=== PATIENT | female | born 1985 | race Caucasian/White ===

== ENCOUNTER 2024-01-18 06:41 | Outpatient (RCR) | payer OTHER, SELFPAY | END 2024-01-18 23:59 | disposition home or self-care (01) | LOC: ROT 06:41 | PROVIDERS: ATTENDING PHYSICIAN Physician Assistant Medical; FAMILY PHYSICIAN Physician Assistant | DX: S62.646D Nondisplaced fracture of proximal phalanx of right little finger, subsequent encounter for fracture with routine healing (principal); Z73.6 Limitation of activities due to disability | CPT/HCPCS: 97022; 97166; 97535 ==

== ENCOUNTER → 2024-09-28 07:34 | Outpatient (REF) | payer OTHER, SELFPAY | LOC: HWWDC 07:34 | PROVIDERS: ATTENDING PHYSICIAN Nurse Practitioner Adult Health; FAMILY PHYSICIAN Internal Medicine | DX: Z12.31 Encounter for screening mammogram for malignant neoplasm of breast (principal); Z80.3 Family history of malignant neoplasm of breast | CPT/HCPCS: 77063; 77067 ==